=== PATIENT | female | born 2000 | race Two or more races ===

== ENCOUNTER 2023-10-10 19:07 | Emergency (ER) | payer OTHER ==
[~2023-10-10] VITALS: Ht 160 cm; Wt 48.1 kg
[2023-10-10 21:15] LABS: HEMATOCRIT 37.6 % (36.0-45.00); HEMOGLOBIN 12.7 g/dL (12.0-15.00); MEAN CELL VOLUME 93.7 fL (80.00-100.00); MEAN CORPUSCULAR HEMOGLOBIN 31.6 pg (27.00-32.0); MEAN CORPUSCULAR HGB CONC 33.7 g/dl (32.0-36.0); PLATELET COUNT 241 K/uL (150-450); RED BLOOD COUNT 4.01 M/uL (4.00-6.00)
[2023-10-10 21:31] LABS: URINE APPEARANCE Clear; URINE BILIRRUBIN Negative (NEGATIVE); URINE BLOOD Negative; URINE COLOR Yellow; URINE GLUCOSE Negative (NEGATIVE); URINE LEUKOCYTE Small; URINE NITRATE Negative; URINE PROTEIN Negative (NEGATIVE)
[2023-10-10 21:35] LABS: URINE EPITHELIAL CELLS 59.5 uL (0.0-38.8); URINE RBC 6.1 uL (0.0-20.8); URINE WBC 46.9 uL (0.0-23.2)
[2023-10-10 22:17] LABS: ALBUMIN 3.9 gm/dL (3.4-5.0); BILIRUBIN TOTAL 0.18 mg/dL (0.3-1.2); CALCIUM 9.1 mg/dL (8.5-10.1); CREATININE SERUM 0.69 mg/dL (0.55-1.02); GFR 106.39; GLOBULINA 4.2 G/DL (2.4-3.5); POTASSIUM 3.75 mEq/L (3.5-5.1); TOTAL PROTEIN 8.1 gm/dL (6.4-8.2)
== END 2023-10-11 00:17 | disposition home or self-care (01) ==
LOC: ER 19:08
PROVIDERS: General Practice
DX: O43.891 Other placental disorders, first trimester (principal); Z3A.01 Less than 8 weeks gestation of pregnancy

== ENCOUNTER 2024-05-10 18:02 | Inpatient (IN) | payer OTHER ==
[~2024-05-10] VITALS: Ht 160 cm; Wt 63.5 kg
[~2024-05-10 18:02] MED LIST: INTEGRA PLUS C1 EACH; IRON236 MG; PRENATAL ONE D1 EACH
[2024-05-10] MEDS ORDERED: RINGERS SOLUTION,LACTATED 1,000 ML IV SCH (18:30)
[2024-05-10 22:16] LABS: PH,URINE 6.5 (5.0-8.0); URINE APPEARANCE Clear; URINE BILIRRUBIN Negative (NEGATIVE); URINE BLOOD Trace; URINE COLOR Yellow; URINE GLUCOSE Negative (NEGATIVE); URINE LEUKOCYTE Large; URINE NITRATE Negative; URINE PROTEIN Negative (NEGATIVE); URINE UROBILINOGEN 0.2 E.U./dl
[2024-05-10 22:18] LABS: URINE BACTERIA 1325.2 uL (0.0-1933); URINE EPITHELIAL CELLS 63.8 uL (0.0-38.8); URINE WBC 119.9 uL (0.0-23.2)
[2024-05-10 22:19] LABS: HEMATOCRIT 35.1 % (36.0-45.00); HEMOGLOBIN 11.9 g/dL (12.0-15.00); MEAN CELL VOLUME 97.6 fL (80.00-100.00); MEAN CORPUSCULAR HEMOGLOBIN 33.2 pg (27.00-32.0); PLATELET COUNT 195 K/uL (150-450); RED BLOOD COUNT 3.59 M/uL (4.00-6.00); RED CELL DISTRIBUTION WIDTH 14.7 % (11.5-14.5)
[2024-05-10 22:32] LABS: INR 0.95; PARTIAL THROMBOPLASTIN TIME 27.2 SECONDS (22.0-34.0)
[2024-05-10 22:33] LABS: URINE RBC 1.3 uL (0.0-20.8)
[2024-05-10 22:34] LABS: URINE EPITHELIAL CELLS 0-4 /HPF
[2024-05-10 22:37] LABS: ALBUMIN 3.1 gm/dL (3.4-5.0); BILIRUBIN TOTAL 0.22 mg/dL (0.3-1.2); CALCIUM 9.3 mg/dL (8.5-10.1); CREATININE SERUM 0.55 mg/dL (0.55-1.02); GFR 136.97; GLOBULINA 4.1 G/DL (2.4-3.5); POTASSIUM 3.85 mEq/L (3.5-5.1); TOTAL PROTEIN 7.2 gm/dL (6.4-8.2)
[2024-05-11] MEDS ORDERED: AMPICILLIN SODIUM 2,000 MG VIAL IV ONE (01:15)
[2024-05-11] MEDS ORDERED: OXYTOCIN 500 ML IV SCH (02:45)
[2024-05-11] MEDS ORDERED: PROMETHAZINE HCL 25 MG/ML AMPUL IV ONE (02:45)
[2024-05-11] MEDS ORDERED: MEPERIDINE HCL/PF 50 MG/ML VIAL IV ONE (02:45)
[2024-05-11] MEDS ORDERED: AMPICILLIN SODIUM 1,000 MG VIAL IV SCH (05:00)
[2024-05-11] MEDS ORDERED: IBUprofen 600 MG TABLET PO SCH (05:15)
[2024-05-11] MEDS ORDERED: CHLORHEXIDINE GLUCONATE 120 ML BOTTLE TOP ONE (05:30)
[2024-05-11] MEDS ORDERED: OXYTOCIN 1,000 ML IV SCH (05:30)
[2024-05-11] MEDS ORDERED: ERYTHROMYCIN BASE 1 GM TUBE OP ONE (05:30)
[2024-05-11 06:43] LABS: ABG PH 7.341 (7.35-7.45); ABG PO2 37.1 mmHg (80-100); ABG pCO2 43.8 mmHg (35-45); BASE EXCESS -2.7 mmol/l; BICARBONATE 23.2 mmol/l (23-25); SaO2 66.1 %; Tco2 24.5 mmol/l; o2 21 %
== END 2024-05-13 15:59 | disposition home or self-care (01) | DRG 807 ==
LOC: OBS/DEL 18:02 → LDR 05-11 01:04 → OB/GYN 05-11 05:39
PROVIDERS: Obstetrics & Gynecology; ADMIT Specialist; ATTEND Specialist
PROC: 10E0XZZ Delivery of Products of Conception, External Approach (ICD-10-PCS; principal; 2024-05-11)
PROC: 0UQG7ZZ Repair Vagina, Via Natural or Artificial Opening (ICD-10-PCS; 2024-05-11)
PROC: 4A1HXCZ Monitoring of Products of Conception, Cardiac Rate, External Approach (ICD-10-PCS; 2024-05-11)
DX: O71.4 Obstetric high vaginal laceration alone (principal); Z37.0 Single live birth; O99.824 Streptococcus B carrier state complicating childbirth; Z3A.38 38 weeks gestation of pregnancy; Z20.822 Contact with and (suspected) exposure to COVID-19